=== PATIENT | female | born 2000 | race Caucasian/White ===

== ENCOUNTER → 2019-02-18 | Outpatient (CLI) | payer BC ==
[2019-02-18 13:50] LABS: CLUE CELLS NOT OBSERVED (Not Observd)
== END ==
LOC: LAB 13:23
PROVIDERS: Physician Assistant
DX: N89.8 Other specified noninflammatory disorders of vagina (principal)
CPT/HCPCS: Q0111

== ENCOUNTER → 2019-08-19 | Outpatient (CLI) | payer OTHER | LOC: LAB 12:01 | DX: Z20.828 Contact with and (suspected) exposure to other viral communicable diseases (principal) ==

== ENCOUNTER → 2023-05-27 | Outpatient (CLI) | payer BC | LOC: RAD 14:50 | DX: S92.352A Displaced fracture of fifth metatarsal bone, left foot, initial encounter for closed fracture (principal); X58.XXXA Exposure to other specified factors, initial encounter ==

== ENCOUNTER → 2023-11-08 | Outpatient (CLI) | payer BC ==
[2023-11-09 11:52] LABS: T3 FREE 3.1 pg/mL (1.7-3.7)
[2023-11-15 14:12] LABS: IODINE 54.4 ug/L (())
== END ==
LOC: LAB 08:19
PROVIDERS: Nurse Practitioner
DX: E03.9 Hypothyroidism, unspecified (principal)